=== PATIENT | female | born 1980 | race Native Hawaiian/Other Pacific Islander ===

== ENCOUNTER 2019-07-04 12:48 | Outpatient (CLI) | payer OTHER | END 2019-07-04 20:07 | disposition home or self-care (01) | LOC: MAMMO 12:48 | DX: Z12.31 Encounter for screening mammogram for malignant neoplasm of breast (principal) ==

== ENCOUNTER 2019-07-11 10:35 | Outpatient (CLI) | payer OTHER | END 2019-07-11 19:37 | disposition home or self-care (01) | LOC: US 10:35 | DX: R92.8 Other abnormal and inconclusive findings on diagnostic imaging of breast (principal) ==

== ENCOUNTER 2020-01-07 21:50 | Emergency (ER) | payer OTHER ==
[~2020-01-07] VITALS: Ht 165.1 cm; Wt 54.0 kg
[2020-01-07 22:37] LABS: PLATELET COUNT 267 K/uL (152-353)
[2020-01-07 23:11] LABS: PARTIAL THROMBOPLASTIN TIME 24.2 SECONDS (24.5-33.6)
[2020-01-07 23:19] LABS: SODIUM 140 mmol/L (136-145)
[2020-01-08 00:45] VITALS: BP 132/66; TEMP 99
== END 2020-01-08 00:45 | disposition home or self-care (01) ==
LOC: ED 21:50
PROVIDERS: Family Medicine
DX: R07.89 Other chest pain (principal); J40 Bronchitis, not specified as acute or chronic
CPT/HCPCS: 36415; 80053; 81000; 82550; 84484; 85027; 85379; 85610; 85730; 87502; 87651; 93005; 96374; 99284; J2930

== ENCOUNTER 2020-06-16 11:03 | Outpatient (CLI) | payer OTHER | END 2020-06-16 23:52 | disposition home or self-care (01) | LOC: MAMMO 11:03 | DX: R92.2 Inconclusive mammogram (principal); R92.8 Other abnormal and inconclusive findings on diagnostic imaging of breast | CPT/HCPCS: G0279 ==

== ENCOUNTER → 2022-08-16 | Outpatient (CLI) | payer OTHER | LOC: MAMMO 13:25 | PROVIDERS: ATTEND Internal Medicine | DX: Z12.31 Encounter for screening mammogram for malignant neoplasm of breast (principal) ==

== ENCOUNTER 2023-03-01 08:37 | Emergency (ER) | payer OTHER ==
[~2023-03-01] VITALS: Ht 165.1 cm; Wt 59.0 kg
[2023-03-01 08:39] VITALS: TEMP 98.2
[2023-03-01 10:30] VITALS: BP 114/58
== END 2023-03-01 10:31 | disposition home or self-care (01) ==
LOC: ED 08:37
DX: T78.40XA Allergy, unspecified, initial encounter (principal)
CPT/HCPCS: 96372; 96374; 96375; 99284; J0171; J1100; J1200